=== PATIENT | male | born 2000 | race Caucasian/White ===

== ENCOUNTER 2020-11-16 20:17 | Emergency (ER) | payer SELFPAY ==
[~2020-11-16] VITALS: Ht 170.2 cm; Wt 69.4 kg
[2020-11-16 20:26] VITALS: Ht 170.2 cm; Wt 69.4 kg
[2020-11-16] MEDS ORDERED: ANTIBIOTIC O500 U/GM TOP (21:44)
[2020-11-16] MEDS ORDERED: IBU600 M2 PO (21:44)
[2020-11-16 22:14] VITALS: BP 125/66
== END 2020-11-16 22:14 | disposition home or self-care (01) ==
LOC: ED 20:17
DX: S61.012A Laceration without foreign body of left thumb without damage to nail, initial encounter (principal); W26.8XXA Contact with other sharp object(s), not elsewhere classified, initial encounter; Y93.89 Activity, other specified; Y92.89 Other specified places as the place of occurrence of the external cause; Y99.8 Other external cause status
CPT/HCPCS: 90715; A4570